=== PATIENT | male | born 1955 | race Caucasian/White ===

== ENCOUNTER 2021-03-20 15:07 | Outpatient (CLI) | payer BC, SELFPAY ==
[2021-03-20 19:52] LABS: Basophils Absolute Auto 0.1 K/mm3 (0.0-0.1); Basophils Percent Auto 0.8 % (0.2-1.2); Eosinophils Absolute Auto 0.5 K/mm3 (0-0.3); Eosinophils Percent Auto 6.3 % (0-4.4); Hematocrit 47.5 % (42.0-52.0); Hemoglobin 15.6 g/dL (14.0-18.0); Immature Granulocyte Absolute 0.02 K/mm3 (0.00-0.031); Immature Granulocyte Percent A 0.3 % (0-0.5); Lymphocytes Absolute Auto 2.09 K/mm3 (0.9-3.2); Mean Corpuscular HGB Conc 32.8 g/dl (32-36); Mean Corpuscular Hemoglobin 29.7 pg (26-34); Mean Corpuscular Volume 90.3 fl (80-100); Mean Platelet Volume 10.7 fl (7.4-10.4); Monocytes Absolute Auto 0.5 K/mm3 (0.1-0.6); Monocytes Percent Auto 6.7 % (2.6-8.5); Neutrophils Absolute Auto 4.6 K/mm3 (1.3-6.7); Neutrophils Percent Auto 58.9 % (45.5-73.1); Platelet Count Result 221 k/mm3 (150-375); Red Blood Count 5.26 M/mm3 (4.6-6.20); Red Cell Distribution Width 12.6 % (11.5-14.5); White Blood Count 7.8 K/mm3 (4.5-10.0)
[2021-03-20 19:57] LABS: Alanine Aminotransferase 32 U/L (4-50); Albumin Level 4.3 g/dL (3.5-5.1); Alkaline Phosphatase 95 U/L (38-126); Anion Gap 8 mmol/L (8-16); Aspartate Amino Transferase 38 U/L (17-59); Bilirubin,Total 2.3 mg/dL (0.2-1.3); Blood Urea Nitrogen 25 mg/dL (9-20); Calcium 9.5 mg/dL (8.4-10.2); Carbon Dioxide 31 mmol/L (22-30); Chloride 98 mmol/L (98-107); Cholesterol 162 mg/dL (0-200); Estimated Glomerular Filt Rate > 60; Glucose 105 mg/dL (65-110); HDL Direct 34 mg/dL; Potassium 3.4 mmol/L (3.4-5.0); Sodium 137 mmol/L (137-145); Triglycerides 134 mg/dL (<150)
[2021-03-20 20:07] LABS: LDL Cholesterol Direct 94 mg/dL
[2021-03-20 20:13] LABS: Vitamin D 25 Hydroxy 67.8 ng/mL
[2021-03-20 21:23] LABS: Hemoglobin A1C 6.3 % (<5.7)
== END 2021-03-20 15:08 | disposition home or self-care (01) ==
LOC: ANHBWCLAB 15:10
PROVIDERS: PCP Family Medicine; Visit Provider Family Medicine
DX: E78.5 Hyperlipidemia, unspecified (principal); I10 Essential (primary) hypertension; Z79.899 Other long term (current) drug therapy; R79.89 Other specified abnormal findings of blood chemistry; H34.239 Retinal artery branch occlusion, unspecified eye; R19.5 Other fecal abnormalities
CPT/HCPCS: 36415; 80053; 80061; 82306; 83036; 85025

== ENCOUNTER 2021-06-13 01:00 | Day surgery (SDC) | payer BC, SELFPAY ==
[2021-06-03 14:52] VITALS: BMI 30.9
[2021-06-13 10:50] VITALS: BP 151/76; PULSE 45; RESP 16; TEMP 36.3; O2SAT 98
[2021-06-13] MEDS: LACTATED RINGERS 1,000 ML 150 ML IV CONT (10:56)
--- NOTE | 2021-06-13 11:06 | WPDANESEPPF ---
Anes - Initial Pre Proc Eval Procedure: Operation Date: 06/13/21 11:45 Proposed Procedures p Colonoscopy - Cristian Renteria MD Date/Time: 06/13/21 11:06 Surgeon: Cristian Renteria MD Pre Op Diagnosis: positive FOBT Patient Data Age: 65 Gender: M Height: 1.93 m Weight: 117.7 kg Last Vital Signs Temp 36.3 C L 06/13/21 10:50 Pulse 45 L 06/13/21 10:50 Resp 16 06/13/21 10:50 BP 151/76 H 06/13/21 10:50 Pulse Ox 98 06/13/21 10:50 Allergies Allergy/AdvReac Type Severity Reaction Status Date / Time No Known Allergies Allergy Verified 06/13/21 10:49 Home Medications Medication Instructions Recorded Confirmed Type metoprolol tartrate 25 mg tablet 25 mg PO DAILY #90 tablet 02/03/21 06/03/21 Rx cholecalciferol (vitamin D3) 250 250 mcg PO DAILY 03/20/21 06/03/21 History mcg (10,000 unit) capsule sildenafil 25 mg tablet 25 mg PO DAILY PRN #30 tablet 03/20/21 06/03/21 Rx aspirin 81 mg tablet,delayed 81 mg PO DAILY #90 tablet 06/10/21 06/13/21 Rx release atenolol 50 mg-chlorthalidone 25 1 tablet PO DAILY #90 tablet 06/10/21 06/13/21 Rx mg tablet atorvastatin 80 mg tablet 80 mg PO DAILY #90 tablet 06/10/21 06/13/21 Rx clopidogrel 75 mg tablet 75 mg PO DAILY #90 tablet 06/10/21 06/13/21 Rx omega-3 acid ethyl esters 1 gram 2 cap PO BID #360 cap 06/10/21 06/13/21 Rx capsule Patient hx anesthesia problems: none Family hx anesthesia problems: none Results Review: All pre-operative results and documents have been reviewed as part of the pre-operative evaluation. [facility] Past Medical History Medical History Dyslipidemia Encounter for long-term (current) use of other medications Essential hypertension FH: cholecystectomy Heart attack Low serum vitamin D Retinal artery branch occlusion Stroke Surgical History Surgical History Stented coronary artery Family History Family History Mother Family history of malignant neoplasm of breast in first degree relative Social History Social History Smoking status: Never smoker Second hand tobacco smoke exposure: No Alcohol intake: current Drinks per week: 5 Alcohol use details: BEERS Substance use: never Substance use type: does not use Living arrangements: with family Spiritual care concerns: No Anes - Eval Final PreProcedure Day of Procedure 06/13/21 11:06 Patient weight: obese Heart: regular rate and rhythm Lungs: clear to auscultation Airway: Mallampati scale class II Neurological: alert and oriented Last oral intake: >/= 8 hours ASA classification: III Emergent: no Anesthetic plan: proceed Anesthesia type and monitoring: general GIVS and standard monitoring Results Review: All pre-operative results and documents have been reviewed as part of the pre-operative evaluation. Informed Consent: The patient's anesthetic plan and its attendant risks and benefits were discussed with the patient/family/POA. Questions were solicited and answers provided to the satisfaction of the patient/family/POA.
--- NOTE | 2021-06-13 11:25 | WPDHPUPDATE1 ---
History and Physical Update Update Date/Time: 06/13/21 11:25 History and Physical has been reviewed, including an updated exam of the patient. There are NO changes in the patient's condition. Risks, benefits, and alternatives have been discussed and questions answered. Patient agrees to proceed with procedure.
[2021-06-13 11:58] VITALS: BP 94/68; PULSE 45; RESP 16; O2SAT 98
[2021-06-13 12:08] VITALS: BP 86/60; PULSE 43; RESP 16; O2SAT 98
[2021-06-13 12:18] VITALS: BP 95/68; PULSE 46; RESP 16; O2SAT 98
[2021-06-13 12:28] VITALS: BP 123/74; PULSE 45; RESP 18; O2SAT 95
== END 2021-06-13 12:40 | disposition home or self-care (01) ==
PROVIDERS: PCP Family Medicine; Visit Provider Internal Medicine Gastroenterology
PROC: 0DJD8ZZ Inspection of Lower Intestinal Tract, Via Natural or Artificial Opening Endoscopic (ICD-10-PCS; CPT 45378; principal; 2021-06-13 11:45)
DX: R19.5 Other fecal abnormalities (principal); K63.5 Polyp of colon; I10 Essential (primary) hypertension; I25.2 Old myocardial infarction; E55.9 Vitamin D deficiency, unspecified; E78.5 Hyperlipidemia, unspecified; H34.239 Retinal artery branch occlusion, unspecified eye; Z86.73 Personal history of transient ischemic attack (TIA), and cerebral infarction without residual deficits; Z95.5 Presence of coronary angioplasty implant and graft
CPT/HCPCS: 45385; 88305; J2001; J2704; J7120

== ENCOUNTER 2022-07-02 11:11 | Outpatient (CLI) | payer BC, SELFPAY ==
[2022-07-02 19:14] LABS: Basophils Absolute Auto 0.1 K/mm3 (0.0-0.1); Basophils Percent Auto 0.8 % (0.2-1.2); Eosinophils Absolute Auto 0.4 K/mm3 (0-0.3); Eosinophils Percent Auto 5.1 % (0-4.4); Hematocrit 45.2 % (42.0-52.0); Immature Granulocyte Absolute 0.01 K/mm3 (0.00-0.031); Immature Granulocyte Percent A 0.1 % (0-0.5); Lymphocytes Absolute Auto 1.49 K/mm3 (0.9-3.2); Lymphocytes Percent Auto 19.6 % (18.3-44.2); Mean Corpuscular HGB Conc 33.2 g/dl (32-36); Mean Corpuscular Hemoglobin 30.2 pg (26-34); Mean Corpuscular Volume 90.9 fl (80-100); Monocytes Absolute Auto 0.5 K/mm3 (0.1-0.6); Monocytes Percent Auto 6.7 % (2.6-8.5); Neutrophils Absolute Auto 5.2 K/mm3 (1.3-6.7); Neutrophils Percent Auto 67.7 % (45.5-73.1); Platelet Count Result 205 k/mm3 (150-375); Red Blood Count 4.97 M/mm3 (4.6-6.20); Red Cell Distribution Width 12.8 % (11.5-14.5); White Blood Count 7.6 K/mm3 (4.5-10.0)
[2022-07-02 19:22] LABS: Hemoglobin A1C 6.2 % (<5.7)
[2022-07-02 19:23] LABS: Alanine Aminotransferase 57 U/L (6-50); Albumin Level 4.1 g/dL (3.5-5.1); Alkaline Phosphatase 104 U/L (38-126); Anion Gap 8 mmol/L (8-16); Aspartate Amino Transferase 101 U/L (17-59); Bilirubin,Total 1.5 mg/dL (0.2-1.3); Blood Urea Nitrogen 19 mg/dL (9-20); Calcium 9.2 mg/dL (8.4-10.2); Carbon Dioxide 31 mmol/L (22-30); Chloride 100 mmol/L (98-107); Cholesterol 148 mg/dL (0-200); Estimated Glomerular Filt Rate 60; Glucose 112 mg/dL (65-110); HDL Direct 34 mg/dL; Potassium 3.6 mmol/L (3.4-5.0); Sodium 139 mmol/L (137-145); Triglycerides 90 mg/dL (<150)
[2022-07-02 19:34] LABS: LDL Cholesterol Direct 88 mg/dL
[2022-07-02 19:50] LABS: Prostate Specific Antigen 0.4 ng/mL (< OR = 4.0)
== END 2022-07-02 11:12 | disposition home or self-care (01) ==
LOC: ANHBWCLAB 11:12
PROVIDERS: PCP Family Medicine; Visit Provider Family Medicine
DX: Z00.00 Encounter for general adult medical examination without abnormal findings (principal); I10 Essential (primary) hypertension; E78.5 Hyperlipidemia, unspecified; R17 Unspecified jaundice; N52.9 Male erectile dysfunction, unspecified; G47.30 Sleep apnea, unspecified; Z95.5 Presence of coronary angioplasty implant and graft; R73.03 Prediabetes
CPT/HCPCS: 36415; 80053; 80061; 83036; 84153; 85025; G0103

== ENCOUNTER → 2022-07-21 08:07 | Outpatient (CLI) | payer BC, SELFPAY ==
--- NOTE | ~2022-07-21 | US_ITS ---
EXAMINATION: US abdomen limited DATE: 07/21/2022 08:34 INDICATION: R17 - Unspecified jaundice TECHNIQUE: Multiple grayscale and Doppler ultrasound images of limited portions of the abdomen were o btained. COMPARISON: None available. FINDINGS: The visualized portions of the pancreas are normal. The liver is normal with normal echogen icity and echotexture. Somewhat limited views of the left liver lobe No surface nodularity. Right lob e 9 mm cyst and 1.1 cm hemangioma are noted. Normal hepatopetal flow in the main portal vein. The gal lbladder is surgically absent. The common bile duct measures 6 mm. IMPRESSION: Status post cholecystectomy, otherwise normal limited abdominal ultrasound findings. Reviewed, dictated and finalized at location K. HELPER IMPRESSION: Status post cholecystectomy, otherwise normal limited abdominal ultrasound find ings.
== END ==
PROVIDERS: PCP Family Medicine; Visit Provider Family Medicine
DX: R17 Unspecified jaundice (principal); Z90.49 Acquired absence of other specified parts of digestive tract
CPT/HCPCS: 76705

== ENCOUNTER 2023-02-02 10:10 | Outpatient (RCR) | payer MEDICARE, SELFPAY ==
[2023-02-02 12:32] VITALS: BMI 28.6
== END 2023-03-25 13:02 | disposition home or self-care (01) ==
LOC: ANHWOC 10:10
PROVIDERS: PCP Nurse Practitioner Adult Health; Visit Provider Nurse Practitioner Adult Health
DX: S81.809D Unspecified open wound, unspecified lower leg, subsequent encounter (principal)
CPT/HCPCS: 99214; G0463

== ENCOUNTER 2023-07-07 10:59 | Outpatient (CLI) | payer MEDICARE, SELFPAY ==
[2023-07-07 19:23] LABS: Anion Gap 10 mmol/L (8-16); Blood Urea Nitrogen 23 mg/dL (9-20); Calcium 9.4 mg/dL (8.4-10.2); Carbon Dioxide 26 mmol/L (22-30); Chloride 104 mmol/L (98-107); Cholesterol 179 mg/dL (0-200); Estimated Glomerular Filt Rate > 60; Glucose 102 mg/dL (65-110); HDL Direct 37 mg/dL; Potassium 3.8 mmol/L (3.4-5.0); Sodium 140 mmol/L (137-145); Triglycerides 116 mg/dL (<150)
[2023-07-07 19:33] LABS: Basophils Absolute Auto 0.1 K/mm3 (0.0-0.1); Basophils Percent Auto 0.9 % (0.2-1.2); Eosinophils Absolute Auto 0.3 K/mm3 (0-0.3); Hematocrit 49.4 % (42.0-52.0); Hemoglobin 16.2 g/dL (14.0-18.0); Immature Granulocyte Absolute 0.01 K/mm3 (0.00-0.031); Immature Granulocyte Percent A 0.2 % (0-0.5); Lymphocytes Absolute Auto 1.69 K/mm3 (0.9-3.2); Lymphocytes Percent Auto 26.4 % (18.3-44.2); Mean Corpuscular HGB Conc 32.8 g/dl (32-36); Mean Corpuscular Hemoglobin 29.4 pg (26-34); Mean Corpuscular Volume 89.7 fl (80-100); Mean Platelet Volume 10.7 fl (7.4-10.4); Monocytes Absolute Auto 0.5 K/mm3 (0.1-0.6); Neutrophils Absolute Auto 3.8 K/mm3 (1.3-6.7); Neutrophils Percent Auto 59.5 % (45.5-73.1); Platelet Count Result 230 k/mm3 (150-375); Red Blood Count 5.51 M/mm3 (4.6-6.20); Red Cell Distribution Width 12.9 % (11.5-14.5); White Blood Count 6.4 K/mm3 (4.5-10.0)
[2023-07-07 19:35] LABS: LDL Cholesterol Direct 105 mg/dL
[2023-07-07 19:50] LABS: Hemoglobin A1C 5.5 % (<5.7)
[2023-07-07 19:52] LABS: Prostate Specific Antigen 0.3 ng/mL (< OR = 4.0)
== END 2023-07-07 11:00 | disposition home or self-care (01) ==
PROVIDERS: PCP Nurse Practitioner Adult Health; Visit Provider Nurse Practitioner Adult Health
DX: R73.03 Prediabetes (principal); Z12.5 Encounter for screening for malignant neoplasm of prostate; I10 Essential (primary) hypertension; Z79.899 Other long term (current) drug therapy; R79.89 Other specified abnormal findings of blood chemistry
CPT/HCPCS: 36415; 80048; 80061; 82306; 83036; 84153; 85025; G0103

== ENCOUNTER 2024-02-02 14:06 | Outpatient (CLI) | payer MEDICARE, SELFPAY ==
[2024-02-02 19:08] LABS: Basophils Absolute Auto 0.1 K/mm3 (0.0-0.1); Basophils Percent Auto 0.9 % (0.2-1.2); Eosinophils Absolute Auto 0.4 K/mm3 (0-0.3); Hematocrit 48.2 % (42.0-52.0); Hemoglobin 15.9 g/dL (14.0-18.0); Immature Granulocyte Absolute 0.01 K/mm3 (0.00-0.031); Immature Granulocyte Percent A 0.1 % (0-0.5); Lymphocytes Absolute Auto 1.73 K/mm3 (0.9-3.2); Lymphocytes Percent Auto 25.4 % (18.3-44.2); Mean Corpuscular Hemoglobin 29.5 pg (26-34); Mean Corpuscular Volume 89.4 fl (80-100); Mean Platelet Volume 10.9 fl (7.4-10.4); Monocytes Absolute Auto 0.5 K/mm3 (0.1-0.6); Monocytes Percent Auto 7.9 % (2.6-8.5); Neutrophils Absolute Auto 4.1 K/mm3 (1.3-6.7); Neutrophils Percent Auto 59.7 % (45.5-73.1); Platelet Count Result 205 k/mm3 (150-375); Red Blood Count 5.39 M/mm3 (4.6-6.20); Red Cell Distribution Width 12.2 % (11.5-14.5); White Blood Count 6.8 K/mm3 (4.5-10.0)
[2024-02-02 20:03] LABS: Alanine Aminotransferase 26 U/L (6-50); Albumin Level 4.5 g/dL (3.5-5.1); Alkaline Phosphatase 100 U/L (38-126); Anion Gap 8 mmol/L (4-12); Aspartate Amino Transferase 61 U/L (17-59); Bilirubin,Total 1.8 mg/dL (0.2-1.3); Blood Urea Nitrogen 20 mg/dL (9-20); Calcium 9.3 mg/dL (8.4-10.2); Carbon Dioxide 25 mmol/L (22-30); Chloride 106 mmol/L (98-107); Cholesterol 161 mg/dL (0-200); Estimated Glomerular Filt Rate > 60; Glucose 99 mg/dL (65-110); HDL Direct 37 mg/dL; Potassium 3.5 mmol/L (3.4-5.0); Sodium 139 mmol/L (137-145); Triglycerides 144 mg/dL (<150)
[2024-02-02 20:13] LABS: LDL Cholesterol Direct 96 mg/dL
[2024-02-02 20:23] LABS: Vitamin D 25 Hydroxy 49.7 ng/mL
[2024-02-02 20:30] LABS: Hemoglobin A1C 5.8 % (<5.7)
[2024-02-02 20:32] LABS: Prostate Specific Antigen 0.3 ng/mL (< OR = 4.0)
== END 2024-02-02 14:07 | disposition home or self-care (01) ==
LOC: ANHBWCLAB 14:07
PROVIDERS: PCP Nurse Practitioner Adult Health; Visit Provider Nurse Practitioner Adult Health
DX: E78.5 Hyperlipidemia, unspecified (principal); R73.03 Prediabetes; R79.89 Other specified abnormal findings of blood chemistry; Z12.5 Encounter for screening for malignant neoplasm of prostate
CPT/HCPCS: 36415; 80053; 80061; 82306; 83036; 84153; 85025; G0103

== ENCOUNTER 2025-01-04 07:55 | Outpatient (CLI) | payer MEDICARE, SELFPAY ==
--- OUTSIDE RECORDS SUMMARY | 2025-01-04 08:01 | XMS_ITS | Referral Summary ---
Author Organization [facility] Address [address] [place] [phone] Care Team Providers Care Business Systems Technician Name Role Phone Lary Durbin AISSATOU Primary Care Provider [phone] Allergies No known active allergies Medications cholecalciferol (VITAMIN D-3) 50,000 unit capsule Take 1 capsule (50,000 Units total) by mouth once a week 1 8 Active omega-3 fatty acids (LOVAZA) 1 gram capsule Take 2 capsules (2 g total) by mouth 2 (two) times a day 6 8 Active atorvastatin (LIPITOR) 80 mg tabletIndicatio ns:myocardial infarction prevention Take 1 tablet (80 mg total) by mouth nightly. 30 tablet 1 9 Active cyclobenzaprine (FLEXERIL) 5 mg tablet Take 1 tablet (5 mg total) by mouth 3 (three) times a day as needed for muscle spasms 30 tablet 11 3 Active Additional Information Patient not taking.Reported on 12/14/2023 lidocaine (LIDODERM) 5 % Place 1 patch on the skin daily Remove & discard patch within 12 hours or as directed by . 30 patch 3 Active polyethylene glycol (MIRALAX) 17 gram packetIndicatio ns:constipation Take 1 packet (17 g total) by mouth daily 30 packet 3 Active senna (SENOKOT) 8.6 mg tabletIndicatio ns:constipation Take 1 tablet by mouth 2 (two) times a day 60 tablet 11 3 Active Additional Information Patient not taking.Reported on 12/14/2023 clopidogreL (PLAVIX) 75 mg tablet Take 1 tablet (75 mg total) by mouth daily 4 Active atenoloL-chlort halidone (TENORETIC) 50-25 mg per tablet Take 1 tablet by mouth daily 4 Active Active Problems Problem Noted Date Diagnosed Date Bradycardia 12/27/2023 Traumatic head injury with m ultiple lacerations, initial encounter 01/08/2023 Complex sleep apnea syndrome 04/04/2019 CVA (cerebral vascular accident) 09/19/2018 Sinusitis 09/19/2018 ST elevation myocardial infa rction involving left anterior descending (LAD) coronary artery 09/12/2018 Essential hypertension 09/12/2018 GRACIE (obstructive sleep apnea) 09/12/2018 Cardiac arrest with ventricular fibrillation CAD s/p PCI x2 09/12/2018 Hypotension 09/12/2018 Acute respiratory failure 09/12/2018 Leukocytosis 09/12/2018 Lactic acidosis 09/12/2018 SHERRY (acute kidney injury) 09/12/2018 Hypermagnesemia 09/12/2018 Transaminitis 09/12/2018 Old [place] (myocardial infarction) Contusion of both lungs Paroxysmal A-fib Adult BMI 32.0-32.9 kg/sq m Left thalamic infarction Immunizations Immunization Administration Dates Next Due Influenza, Trivalent, IM (MDV) 06/09/2011 Tdap 01/08/2023 Social History Tobacco Use Types Packs/Day Years Used Date Smoking Tobacco: Never Smokeless Tobacco: Never Tobacco Cessation:Counseling Given: Not Answered Alcohol Use Standard Drinks/Week Comments Yes 0 (1 standard drink = 0.6 oz pur e alcohol) PHQ-2 Answer Date Recorded PHQ-2 Score 0 04/07/2019 Personal Safety Answer Date Recorded Have you ever been in or are you currently in a harmful physical or emotional relationship or is someone making you feel afraid or unsafe? Denies 01/08/2023 Sex and Gender Information Value Date Recorded Sex Assigned at Not on file Legal Sex Male 7:51 PM MERCHANDISE MARKER Gender Identity Male 04/17/2021 4:45 PM CDT Sexual Orientation Not on file Last Filed Vital Signs Vital Sign Reading Time Taken Comments Blood Pressure 115/78 07/07/2024 2:39 PM MERCHANDISE MARKER Pulse 56 07/07/2024 2:39 PM MERCHANDISE MARKER Temperature 36.7 C (98.1 F) 01/12/2023 12:05 PM CDT Respiratory Rate 16 01/12/2023 1:40 PM CDT Oxygen Saturation 98% 01/12/2023 9:00 AM CDT Inhaled Oxygen Concentration - - Weight 115.7 kg (255 lb) 08/07/2024 8:00 AM MERCHANDISE MARKER Height 193 cm (6' 4 ) 08/07/2024 8:00 AM MERCHANDISE MARKER Body Mass Index 31.04 08/07/2024 8:00 AM MERCHANDISE MARKER Plan of Treatment Not on file Medical Devices Implanted Type Area Hydroelectric Mechanic Device Identifier Shelf Expiration Date Model / Serial / Lot Denis Vascular [id number] Xience Alpine 3.25mm 15mm 145cm Flexible Tip Rapid Exchange - [id number] Implanted:Qty: 1 on 09/11/2018 by Candy Young MD at [facility] Vascular 08/02/2020 [id number] Denis Vascular [id number] Xience Alpine 3.25mm 12mm 145cm Rapid Exchange Radiopaque 1 - [id number] Implanted:Qty: 1 on 09/11/2018 by Candy Young MD at [facility] V[facility] 07/13/2020 [id number] Daig Sam[employer] [id number] Angio-Seal Vip Bondek-Plus 6fr .035in 70cm Hemostatic Latex Free - [id number] Implanted:Qty: 1 on 09/11/2018 by Candy Young MD at [facility] [employer] 04/15/2019 [id number] / / [id number] Procedures Procedure Name Priority Date/Time Associated Diagnosis Comments HEPATITIS PANEL, ACUTE Routine 09/12/2018 9:53 AM MERCHANDISE MARKER COLONOSCOPY 07/25/2013 12:00 AM MERCHANDISE MARKER from Last 3 Months or Most Recently Relevant to Health Maintenance Results * Hepatitis panel, acute (09/12/2018 9:53 AM MERCHANDISE MARKER) Pathologist [facility] Hep A IgM Negative Negative [facility] Hep B core IgM Negative Negative [facility] Hep C Ab Negative Negative [facility] HepBsAg Negative Negative [facility] Blood specimen (specimen) 09/12/2018 9:53 AM MERCHANDISE MARKER 09/12/2018 9:56 AM MERCHANDISE MARKER Narrative CATALINA GRIFFIN - 09/12/2018 10:59 AM MERCHANDISE MARKER Ilda Griffin DO LAB MICROBIOLOGY - GENERAL ORDE STEPHEN Final Result CATALINA GRIFFIN [id number] [address] Department [place] [address] * COLONOSCOPY (07/25/2013 12:00 AM MERCHANDISE MARKER) Anatomical Region Laterality Modality Other Narrative 07/25/2013 12:00 AM MERCHANDISE MARKER Ordered by an unspecified provider. Procedure Note Provider, MD Rogelio - 07/25/2013 12:00 AM CST PROCEDURE REPORT Patient: CHARLES PEARL Account: [id number] Room No: : 1955 Patient Type: [facility] Attend.: Vipul Mchugh M.D. Admit Date: 07/25/2013 Dict.: Vipul Mchugh M.D. Disch. Date: NAME OF PROCEDURE: Colonoscopy with polypectomy. DATE OF PROCEDURE 07/25/2013 HISTORY This 57-year-old male presents for screening colonoscopy. PHYSICAL EXAMINATION A well-developed male. Lungs are clear. Cardiovascular exam isunremarkable. PROCEDURE Colonoscopy with polypectomy was performed with the Olympus videoendoscope. The patient was premedicated by anesthesia. On digital exam noabnormalities are palpable. We inserted the endoscope and advanced it to the cecum. Thecolon was well prepped and visualized. On withdrawal through the proximaltransverse we found a 12-mm polyp, which appeared to be a serrated, sessile adenoma.We biopsied and coagulated this. We then carefully searched the remainder ofthe colon. No other abnormalities were noted. He tolerated the procedurewithout difficulty. POSTOPERATIVE DIAGNOSIS A 12-mm polyp biopsied and coagulated, proximal transverse. PLAN Surveillance five years. Vipul Mchugh M.D. /herlinda TD: 07/25/2013 10:29 CC: Rey Nolasco M.D. Authenticated by Vipul Mchugh MD On 07/27/2013 10:17:25 AM us Historical Provider ENDOSCOPY PROCEDURES Eleni l Result from Last 3 Months or Most Recently Relevant to Health Maintenance Insurance MEDICARE ADVANTAGE [facility] MEDICARE ADVANTAGE Advance Directives For more information, please contact: [phone] * Full Code (Latest Code Status on File) Date Activated Date Inactivated Comments 01/08/2023 9:46 AM 01/12/2023 8:24 PM * Full Code Date Activated Date Inactivated Comments 09/19/2018 5:49 PM 09/23/2018 6:36 PM * Full Code Date Activated Date Inactivated Comments 09/19/2018 4:14 PM 09/19/2018 5:49 PM * Full Code Date Activated Date Inactivated Comments 09/12/2018 3:22 AM 09/16/2018 10:33 PM * Full Code Date Activated Date Inactivated Comments 09/12/2018 1:52 AM 09/12/2018 3:22 AM Healthcare Agents on File Name Relationship Healthcare Agent [facility] p Communication Vitor Pearl [facility] re Agent Care Teams Business Systems Technician Relationship Specialty Start Date End Date Lary Durbin NP [address] [place] [id number] PCP - General Nurse Practitioner 07/07/24
--- OUTSIDE RECORDS SUMMARY | 2025-01-04 08:01 | XMS_ITS | Clinical Summary ---
Author Organization [facility] Address [address] [place] [phone] Care Team Providers Care Wellhead Pumper Name Role Phone Lray Durbin AISSATOU Primary Care Provider [phone] Allergies No known active allergies Medications cholecalciferol [...] injury) 09/12/2018 Hypermagnesemia 09/12/2018 Transaminitis 09/12/2018 [place] (myocardial infarction) Contusion of both lungs Paroxysmal A-fib Adult BMI 32.0-32.9 kg/sq m Left thalamic infarction Immunizations Immunization Administration Dates Next Due Influenza, Trivalent, IM (MDV) 06/09/2011 Tdap 01/08/2023 Surgical History Surgery Date Site/Laterality Comments CHOLECYSTECTOMY 2009 Cholecystectomy Family History Medical History Relation Name Comments Coronary artery disease Father Dilcia nary artery disease; Cause of : Coronary artery disease Breast cancer Mother Cancer, breast ; Other Mother Alive and well; adenocarcinoma of lung Mother Relation Name Status Comments Father (Age 62) Mother Alive Social History Tobacco Use Types Packs/Day Years [...] on file Legal Sex Male 7:51 PM HOME CARE ATTENDANT Gender Identity Male 04/17/2021 4:45 PM CDT Sexual Orientation Not on file Obstetrics History Last Filed Vital Signs Vital Sign Reading Time Taken Comments Blood Pressure 115/78 07/07/2024 2:39 PM HOME CARE ATTENDANT Pulse 56 07/07/2024 2:39 PM HOME CARE ATTENDANT Temperature 36.7 C (98.1 F) 01/12/2023 12:05 PM CDT Respiratory Rate 16 01/12/2023 1:40 PM CDT Oxygen Saturation 98% 01/12/2023 9:00 AM CDT Inhaled Oxygen Concentration - - Weight 115.7 kg (255 lb) 08/07/2024 8:00 AM HOME CARE ATTENDANT Height 193 cm (6' 4 ) 08/07/2024 8:00 AM HOME CARE ATTENDANT Body Mass Index 31.04 08/07/2024 8:00 AM HOME CARE ATTENDANT Plan of Treatment Health Maintenance Due Date Last Done Comments Hepatitis B Screening 1972 Pneumococcal vaccine 65+ (1 of 1 - PCV) 2004 Zoster Vaccine (1 of 2) 2004 Depression Screening 09/19/2019 09/19/2018 Well Visit 65+ 11/22/2019 Colon Cancer Screening-Colonoscopy 07/25/20232012 Fall Risk Assessment 01/13/2024 01/12/2023 Covid-19 Vaccine (3 - season) 2024, 11/09/2020 Influenza Vaccine (Season Ended) 2025 06/09/20 11 DTaP/Tdap/Td Vaccine (2 - Td or Tdap) 01/08/2033 Colon Cancer Screening-CT Colonography Discontinued Colon Cancer Screening-DNA Stool Discontinued 07/25/20 13 Colon Cancer Screening-FIT Discontinued 07/25/2013 Colon Cancer Screening-Sigmoidoscopy Discontinued 07/16 Hepatitis C Screening Completed 09/12/2018, 013 Medical Devices Implanted Type Area Tamale Machine Feeder Device Identifier Shelf Expiration Date Model / Serial / Lot Denis Vascular [id number] Xience Alpine 3.25mm 15mm 145cm Flexible Tip Rapid Exchange - [id number] Implanted:Qty: 1 on 09/11/2018 by Candy Young MD at [facility] [employer] 08/02/2020 [id number] Denis Vascular [id number] Xience Alpine 3.25mm 12mm 145cm Rapid Exchange Radiopaque 1 - [id number] Implanted:Qty: 1 on 09/11/2018 by Candy Young MD at [facility] [employer] 07/13/2020 [id number] Daig Sam[employer] [id number] Angio-Seal Vip Bondek-Plus 6fr .035in 70cm Hemostatic Latex Free - [id number] Implanted:Qty: 1 on 09/11/2018 by Candy Young MD at [facility] [employer]ig [employer] 04/15/2019 [id number] / / [id number] Procedures Procedure Name Priority Date/Time Associated Diagnosis Comments HEPATITIS PANEL, ACUTE Routine 09/12/2018 9:53 AM HOME CARE ATTENDANT COLONOSCOPY 07/25/2013 12:00 AM HOME CARE ATTENDANT from Last 3 Months or Most Recently Relevant to Health Maintenance Results * Hepatitis panel, acute (09/12/2018 9:53 AM HOME CARE ATTENDANT) Hep [facility] IgM Negative [facility] Hep B core IgM Negative Negative [facility] Hep C Ab Negative Negative [facility] HepBsAg Negative Negative [facility] Blood specimen (specimen) 09/12/2018 9:53 AM HOME CARE ATTENDANT 09/12/2018 9:56 AM HOME CARE ATTENDANT Narrative CATALINA - 09/12/2018 10:59 AM HOME CARE ATTENDANT us Ilda Griffin DO LAB MICROBIOLOGY - GENERAL ORDE RABREYES Final Result CATALINA GRIFFIN [address] [address] Department [place] [address] * COLONOSCOPY (07/25/2013 12:00 AM HOME CARE ATTENDANT) Anatomical Region Laterality Modality Other Narrative 07/25/2013 12:00 AM HOME CARE ATTENDANT Ordered by an unspecified provider. Procedure Note ProviderRogelio MD - 07/25/2013 12:00 AM CST PROCEDURE REPORT Patient: CHARLES PEARL Account: [id number] Room No: : 1955 Patient Type: SDS Attend.: Vipul Mchugh M.D. Admit Date: 07/25/2013 [...] PLAN Surveillance five years. Vipul Mchugh M.D. DR/herlinda TD: 07/25/2013 10:29 CC: Rey Nolasco M.D. Authenticated by Vipul Mchugh MD On 07/27/2013 10:17:25 AM us Historical Provider ENDOSCOPY PROCEDURES Eleni l Result from Last 3 Months or Most Recently Relevant to Health Maintenance Insurance [facility] MEDICARE ADVANTAGE [facility] MEDICARE ADVANTAGE Advance Directives For more information, please contact: [phone] * Full Code (Latest Code Status on [...] Agents on File Name Relationship Healthcare Agent Relationsco p Communication Vitor Pearl Son [facility] re Agent Care Teams Wellhead Pumper Relationship Specialty Start Date End Date Lary Durbin NP [address] [place] [id number] PCP - General Nurse Practitioner 07/07/24
[2025-01-04 19:17] LABS: Alanine Aminotransferase 32 U/L (6-50); Albumin Level 4.5 g/dL (3.5-5.1); Alkaline Phosphatase 116 U/L (38-126); Anion Gap 9 mmol/L (4-12); Aspartate Amino Transferase 106 U/L (17-59); Bilirubin,Total 1.7 mg/dL (0.2-1.3); Blood Urea Nitrogen 24 mg/dL (9-20); Calcium 9.5 mg/dL (8.4-10.2); Carbon Dioxide 31 mmol/L (22-30); Chloride 102 mmol/L (98-107); Cholesterol 158 mg/dL (0-200); Estimated Glomerular Filt Rate 53; Glucose 125 mg/dL (65-110); HDL Direct 33 mg/dL; Potassium 3.4 mmol/L (3.4-5.0); Sodium 142 mmol/L (137-145); Triglycerides 104 mg/dL (<150)
[2025-01-04 19:28] LABS: LDL Cholesterol Direct 78 mg/dL
== END 2025-01-04 07:56 | disposition home or self-care (01) ==
PROVIDERS: PCP Nurse Practitioner Adult Health; Visit Provider Nurse Practitioner Adult Health
DX: R73.9 Hyperglycemia, unspecified (principal); I10 Essential (primary) hypertension
CPT/HCPCS: 36415; 80053; 80061; 83036

== ENCOUNTER 2025-03-14 13:38 | Outpatient (CLI) | payer MEDICARE, SELFPAY ==
--- OUTSIDE RECORDS SUMMARY | 2025-03-14 13:50 | XMS_ITS | Clinical Summary ---
Author Organization [facility] Address [address] [place] [phone] Care Team Providers Care Case Liner Name Role Phone Lary Durbin AISSATOU Primary Care Provider [phone] Allergies No known active allergies Medications cholecalciferol [...] a day 60 tablet 11 3 Active clopidogreL (PLAVIX) 75 mg tablet Take 1 [...] injury) 09/12/2018 Hypermagnesemia 09/12/2018 Transaminitis 09/12/2018 [place] (myocardial infarction) Contusion of both lungs Paroxysmal A-fib Adult BMI 32.0-32.9 kg/sq m Left thalamic infarction Encounters Date Type Department Care Team Description 01/05/2025 2:30 PM CDT Office Visit [facility] at [address] [place] [phone] Candy Young MD Coronary artery disease involving ruby coronary artery of ruby heart without angina pectoris (Primary Dx); Paroxysmal A-fib (HCC); Old [place] (myocardial infarction); Essential hypertension; Bradycardia from Last 3 Months Immunizations Immunization Administration Dates Next Due Influenza, Trivalent, IM (MDV) 06/09/2011 Tdap 01/08/2023 Surgical History Surgery Date Site/Laterality Comments CHOLECYSTECTOMY 2010 Cholecystectomy Family History Medical History Relation Name [...] on file Legal Sex Male 7:51 PM INSPECTOR RETURNED MATERIALS Gender Identity Male 04/17/2021 4:45 PM CDT Sexual Orientation Not on file Obstetrics History Last Filed Vital Signs Vital Sign Reading Time Taken Comments Blood Pressure 138/84 01/05/2025 2:48 PM CDT Pulse 50 01/05/2025 2:48 PM CDT Temperature 36.7 C (98.1 F) 01/12/2023 12:05 PM CDT Respiratory Rate 16 01/12/2023 1:40 PM CDT Oxygen Saturation 98% 01/12/2023 9:00 AM CDT Inhaled Oxygen Concentration - - Weight 114.8 kg (253 lb) 01/05/2025 2:48 PM CDT Height 193 cm (6' 4) 01/05/2025 2:48 PM CDT Body Mass Index 30.8 01/05/2025 2:48 PM CDT Plan of Treatment Health Maintenance Due Date Last Done Comments Hepatitis B Screening 1972 Pneumococcal vaccine 65+ (1 of 1 - PCV) 2004 Zoster Vaccine (1 of 2) 2004 Depression Screening 09/19/2019 09/19/2018 Well Visit 65+ 11/22/2019 Colon Cancer Screening-Colonoscopy 07/25/20232012 Fall Risk Assessment 01/13/2024 01/12/2023 Covid-19 Vaccine ( - season) 2024, 11/09/2020 Influenza Vaccine (#1) 2025 06/09/2011 DTaP/Tdap/Td Vaccine (2 - Td or Tdap) 01/08/2033 Colon Cancer Screening-CT Colonography Discontinued Colon Cancer Screening-DNA Stool Discontinued 07/25/20 13 Colon Cancer Screening-FIT Discontinued 07/25/2013 Colon Cancer Screening-Sigmoidoscopy Discontinued 07/16 Hepatitis C Screening Completed 09/12/2018, 013 Medical Devices Implanted Type Area Sleep Manager Device Identifier Shelf Expiration Date Model / Serial / Lot Denis Vascular [id number] Xience Alpine 3.25mm 15mm 145cm Flexible Tip Rapid Exchange - [id number] Implanted:Qty: 1 on 09/11/2018 by Candy Young MD at [facility] [employer] 08/02/2020 [id number] [employer] [id number] Xience Alpine 3.25mm 12mm 145cm Rapid Exchange Radiopaque 1 - [id number] Implanted:Qty: 1 on 09/11/2018 by Candy Young MD at [facility] [employer] 07/13/2020 [id number] 2 / [id number] Daig Sam[employer] [id number] Angio-Seal Vip Bondek-Plus 6fr .035in 70cm Hemostatic Latex Free - [id number] Implanted:Qty: 1 on 09/11/2018 by Candy Young MD at [facility] [employer]ig [employer] 04/15/2019 [id number] / / [id number] Procedures Procedure Name Priority Date/Time Associated Diagnosis Comments HEPATITIS PANEL, ACUTE Routine 09/12/2018 9:53 AM INSPECTOR RETURNED MATERIALS COLONOSCOPY 07/25/2013 12:00 AM INSPECTOR RETURNED MATERIALS from Last 3 Months or Most Recently Relevant to Health Maintenance Results * Hepatitis panel, acute (09/12/2018 9:53 AM INSPECTOR RETURNED MATERIALS) Hep A IgM Negative Negative [facility] Hep B core IgM Negative Negative [facility] Hep C Ab Negative Negative [facility] HepBsAg Negative Negative [facility] Blood specimen (specimen) 09/12/2018 9:53 AM INSPECTOR RETURNED MATERIALS 09/12/2018 9:56 AM INSPECTOR RETURNED MATERIALS Narrative [facility] - 09/12/2018 10:59 AM INSPECTOR RETURNED MATERIALS [facility] MICROBIOLOGY - GENERAL ORDE STEPHEN Final Result CATALINA GRIFFIN [address] [address] Department [place] [address] * COLONOSCOPY (07/25/2013 12:00 AM INSPECTOR RETURNED MATERIALS) Anatomical Region Laterality Modality Other Narrative 07/25/2013 12:00 AM INSPECTOR RETURNED MATERIALS Ordered by an unspecified provider. Procedure Note Provider, MD Rogelio - 07/25/2013 12:00 AM CST PROCEDURE REPORT Patient: CHARLES PEARL Account: [id number] Room No: : 1955 Patient Type: SDS [...] Most Recently Relevant to Health Maintenance Insurance [facility] MEDICARE ADVANTAGE [facility] Address: [address] [address] [facility] MEDICARE ADVANTAGE [facility] MEDICARE Address: [address] [place] [phone] Advance Directives For more information, please contact: [phone] * Full Code (Latest Code Status on [...] Agents on File Name Relationship Healthcare Agent Relationshi p Communication Vitor Pearl Son [facility] re Agent Care Teams Case Liner Relationship Specialty Start Date End Date Lary Durbin NP [address] [place] [address] PCP - General Nurse Practitioner 07/07/24
--- OUTSIDE RECORDS SUMMARY | 2025-03-14 13:50 | XMS_ITS | Referral Summary ---
Author Organization 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 30 patch 3 Active polyethylene glycol (MIRALAX) [...] injury) 09/12/2018 Hypermagnesemia 09/12/2018 Transaminitis 09/12/2018 Old MD (myocardial infarction) Contusion of both lungs Paroxysmal [...] on file Legal Sex Male 7:51 PM [employer] Gender Identity Male 04/17/2021 4:45 PM CDT [...] 01/05/2025 2:48 PM CDT Plan of Treatment Not on file Medical Devices Implanted Type Area Paperhanger Assistant Device Identifier Shelf Expiration Date Model / Serial / Lot [employer] [id number] Xience Alpine 3.25mm 15mm 145cm Flexible Tip Rapid Exchange - [id number] Implanted:Qty: 1 on 09/11/2018 by Candy Young MD at [facility] [employer] 08/02/2020 [id number] [employer] [id number] Xience Alpine 3.25mm 12mm 145cm Rapid Exchange Radiopaque 1 - [id number] Implanted:Qty: 1 on 09/11/2018 by Candy Young MD at [facility] [employer] 07/13/2020 [id number] [employer] [id number] Angio-Seal Vip Bondek-Plus 6fr .035in 70cm Hemostatic Latex Free - [id number] Implanted:Qty: 1 on 09/11/2018 by Candy Young MD at [facility] [employer] 04/15/2019 [id number] / / [id number] Procedures Procedure Name Priority Date/Time Associated Diagnosis Comments HEPATITIS PANEL, ACUTE Routine 09/12/2018 9:53 AM [employer] COLONOSCOPY 07/25/2013 12:00 AM M[employer]TER SU[employer] from Last 3 Months or Most Recently Relevant to Health Maintenance Results * Hepatitis panel, acute (09/12/2018 9:53 AM M[employer]TER SUPER[employer]) Hep A IgM Negative Negative [facility] Hep B core IgM Negative Negative [facility] Hep C Ab Negative Negative [facility] HepBsAg Negative Negative [facility] Blood specimen (specimen) 09/12/2018 9:53 AM M[employer]TER [employer] 09/12/2018 9:56 AM M[employer]TER [employer]PER[employer] [facility]/12/[facility] 10:59 AM M[employer]TER SUPER[employer] Ilda Grfifin DO LAB [facility] Final Result [facility] [id number] Department [place] [address] * COLONOSCOPY (07/25/2013 12:00 AM MELTER SUPERVIS[employer]) Anatomical Region Laterality Modality Other Narrative 07/25/2013 12:00 AM [employer]TER [employer] Ordered by an unspecified provider. Procedure Note Provider, MD Rogelio - 07/25/2013 12:00 AM CST PROCEDURE REPORT Patient: CHARLES PEARL Account: [id number] Room No: : 1955 Patient Type: [facility] Attend.: Vipul Mchugh M.D. Admit Date: 07/25/2013 Dict.: Vipul Mchugh M.D. Disch. Date: NAME OF PROCEDURE: Colonoscopy with polypectomy. DATE OF PROCEDURE 07/25/2013 HISTORY This 57-year-old male presents for screening colonoscopy. PHYSICAL EXAMINATION A well-developed male. Lungs are clear. Cardiovascular exam isunremarkable. PROCEDURE Colonoscopy with polypectomy was performed with the [employer] videoendoscope. The patient was premedicated by anesthesia. [...] Vipul Mchugh MD On 07/27/2013 10:17:25 AM Historical Provider MD ENDOSCOPY PROCEDURES Eleni l Result from Last 3 Months or Most Recently Relevant to Health Maintenance Insurance [facility] [employer] Advance Directives For more information, please contact: [phone] * Full Code (Latest Code Status on [...] Name Relationship Healthcare Agent Relationshi p Communication Vitorshukri Pearl [facility] Second [facility] Ca re Agent Care Teams Medical Assistant Cardiology Relationship Specialty Start Date End Date Lary Durbin NP [address] [place] [id number] PCP - General Nurse Practitioner 07/07/24
[2025-03-14 20:10] LABS: Alanine Aminotransferase 32 U/L (6-50); Albumin Level 4.2 g/dL (3.5-5.1); Alkaline Phosphatase 105 U/L (38-126); Anion Gap 5 mmol/L (4-12); Aspartate Amino Transferase 83 U/L (17-59); Bilirubin,Total 2.3 mg/dL (0.2-1.3); Blood Urea Nitrogen 20 mg/dL (9-20); Calcium 9.5 mg/dL (8.4-10.2); Carbon Dioxide 32 mmol/L (22-30); Chloride 100 mmol/L (98-107); Estimated Glomerular Filt Rate 52; Glucose 111 mg/dL (65-110); Potassium 4.2 mmol/L (3.4-5.0); Sodium 137 mmol/L (137-145); Total Protein 7.3 g/dL (6.3-8.2)
== END 2025-03-14 13:39 | disposition home or self-care (01) ==
PROVIDERS: PCP Nurse Practitioner Adult Health; Visit Provider Nurse Practitioner Adult Health
DX: N28.9 Disorder of kidney and ureter, unspecified (principal)
CPT/HCPCS: 36415; 80053